=== PATIENT | female | born 1995 | race Caucasian/White ===

== ENCOUNTER 2016-09-23 11:04 | Emergency (ER) | payer BC ==
[~2016-09-23] VITALS: Ht 170.2 cm; Wt 53.3 kg
[2016-09-23 11:37] LABS: HEMATOCRIT 35.2 % (36.0-46.0); MCH 27.4 PG (29.0-34.0); MCHC 33.5 G/DL (30.0-36.0); MCV 81.9 FL (83-99); MEAN PLAT.VOLUME 8.6 uM^3 (9.5-12.4); PLATELET COUNT 301 K/uL (156-360); RBC DIS.WIDTH-CV 14.3 % (11.8-14.6); RBC DIS.WIDTH-SD 42.5 % (39-53); WHITE BLOOD COUNT 9.2 K/uL (4.1-10.2)
[2016-09-23 11:42] LABS: CHLORIDE 105 mEq/L (99-109); POTASSIUM 4.5 mEq/L (3.7-5.4); SODIUM 138 mEq/L (136-147)
[2016-09-23 11:43] LABS: GLUCOSE 90 mg/dL (70-99)
[2016-09-23 11:45] LABS: ANION GAP 8 MEQ/L (2-14)
[2016-09-23 11:47] LABS: GFR ESTIMATE (CALCULATED) > 59 mL/min/
[2016-09-23 11:48] LABS: UREA NITROGEN (BUN) 7 mg/dL (9-23)
[2016-09-23 12:25] LABS: ADD MIUA? YES; BILIRUBIN NEGATIVE; BLOOD MODERATE; COLOR YELLOW ((YELLOW)); GLUCOSE (STRIP) NEGATIVE; KETONES NEGATIVE; LEUKOCYTES LARGE; NITRITE POSITIVE; PROTEIN (STRIP) 100; SPECIFIC GRAVITY 1.014 (1.000-1.030); UROBILINOGEN 0.2 MG/DL (0.2-1.0)
[2016-09-23 12:36] LABS: QUANTITATIVE HCG < 4.0 MIU/ML
[2016-09-23 12:37] LABS: BACTERIA RARE /HPF; EPITHELIAL CELLS 1+ /HPF; MUCUS 2+ /LPF; RED BLOOD CELLS 40-50 /HPF (0-5); UCUL ADDED? YES; WHITE BLOOD CELLS TNTC /HPF (0-5)
[2016-09-23] MEDS ORDERED: LEVAQUIN750 MG PO (14:32)
[2016-09-23] MEDS ORDERED: LEVAQUIN500 MG PO (14:32)
[2016-09-23] MEDS ORDERED: TYLENOL WITH C1 EACH PO (14:33)
[2016-09-23 14:56] VITALS: BP 122/72
== END 2016-09-23 15:02 | disposition home or self-care (01) ==
LOC: EME 11:04
DX: N10 Acute pyelonephritis (principal); N20.0 Calculus of kidney; Z88.0 Allergy status to penicillin
CPT/HCPCS: 74176; 80048; 81003; 84702; 85027; 87077; 87086; 87186; 99281; 99285; J0696; J7030; J7050